=== PATIENT | female | born 1995 | race Caucasian/White ===

== ENCOUNTER 2017-09-30 18:03 | Emergency (ER) | payer OTHER ==
[~2017-09-30] VITALS: Ht 157.5 cm; Wt 75.0 kg
[~2017-09-30 18:03] MED LIST: FRRS300 PO; MTR600X PO; PRENTAB26 PO
[2017-09-30 18:07] VITALS: TEMP 36.7; Ht 157.5 cm; Wt 75.0 kg
[2017-09-30] MEDS ORDERED: SODIUM CHLORIDE 0.9% 1000ML 1,000 ML IV STA (20:18)
[2017-09-30] MEDS ORDERED: ONDANSETRON INJ 2 MG/ML 2 ML VIAL IV STA (20:18)
--- NOTE | 2017-09-30 20:29 | EMERGENCY ROOM VISIT NOTE ---
History Report prepared by Tomi: Edward Vega Under the Supervision of: Dr. Isaac Hutchins D.O. First contact with patient: 20:10 Chief Complaint: ED VAG BLEEDING Stated Complaint: BLOOD CLOTS, CRAMPING, BACK PAIN, MISSCARRIAGE? History of Present Illness The patient is a 22 year old female who presents to the Emergency Room with complaints of worsening blood clots and lower back pain that began 2 days ago. She has associated symptoms of nausea and "feeling like she has to throw up". She denies any change in urination, rashes, or leg swelling. She states that her last menstrual period was 2 months ago. She states her menstrual periods have been irregular for the past 2 months. She denies seeing a doctor for these symptoms. She denies having a current OBGYN. Patient adds that she gave on 08/08/2016. Physician that delivered the baby was Dr. Vernon of [facility] [place]. Pertinent past medical history includes anxiety, lower back pain, and depression. She states she takes medications for her anxiety and depression daily. She denies taking any back medication. She denies a history of surgeries. Patient denies using alcohol or tobacco. She denies taking Toradol or Tylenol. She does not have any medication allergies. Source of History: patient Onset: 2 days ago Position: back (lower) Timing: worsening Associated Symptoms: + nausea, No urinary symptoms, No rash Note: Patient denies leg swelling. Review of Systems See HPI for pertinent positives & negatives. A total of 10 systems reviewed and were otherwise negative. Past Medical & Surgical Medical Problems: (1) Anxiety (2) Depression (3) Family History No pertinent family medical history. Social History Smoking Status: Never Smoker Marital Status: Current/Historical Medications Scheduled [Anxiety Medication], 1 TAB PO DAILY [Depression Med], 1 TAB PO DAILY Allergies Coded Allergies: No Known Allergies (Unverified , 09/30/17) Physical Exam Vital Signs Date Time Temp Pulse Resp B/P (MAP) Pulse Ox O2 Delivery O2 Flow Rate FiO2 09/30/17 23:07 83 18 123/77 98 09/30/17 22:04 88 18 120/75 98 Room Air 09/30/17 18:07 36.7 94 17 138/93 100 Room Air Physical Exam GENERAL: Patient is awake, alert, and in no acute distress. Patient is resting comfortably and showing no signs of anxiety EYES: The conjunctivae are clear. The pupils are round and reactive. EARS, NOSE, MOUTH AND THROAT: The nose is without any evidence of any deformity. Mucous membranes are moist tongue is midline NECK: The neck is nontender and supple. RESPIRATORY: Normal respiratory effort is noted there is no evidence of wheezing rhonchi or rales CARDIOVASCULAR: Regular rate and rhythm noted there no murmurs rubs or gallops normal S1 normal S2 GASTROINTESTINAL: The abdomen is soft. Bowel sounds are present in all quadrants. Abdomen is nontender MUSCULOSKELETAL/EXTREMITIES: There is no evidence of gross deformity full range of motion is noted in the hips and shoulders SKIN: There is no obvious evidence of any rash. There are no petechiae, pallor or cyanosis noted. NEUROLOGIC: Patient is awake alert and oriented x3. Medical Decision & Procedures ER Provider Diagnostic Interpretation: Radiology results as stated below per my review and radiologist interpretation: TRANSVAG-FEMALE PELVIS CLINICAL HISTORY: 22 years-old Female presenting with bleeding, cramping, clots, irregular periods. TECHNIQUE: Real-time grayscale and color and spectral Doppler ultrasound imaging of the pelvis was performed first using a transabdominal probe and subsequently transvaginal for better characterization. COMPARISON: None. FINDINGS: Uterus: Normal. Anteverted. The uterus measures 5.6 x 2.7 x 3.9 cm. Endometrial stripe measures 2 mm in thickness. Endometrium normal-appearing. Cervix normal. Right adnexa: Right ovary normal with a dominant follicle. Right ovary measures 4.3 x 2.5 x 3.3 cm. Normal color Doppler flow and arterial and venous waveforms within the ovarian parenchyma. Left adnexa: Left ovary normal. Left ovary measures 2.6 x 1.6 x 1.9 cm. Normal color Doppler flow and arterial and venous waveforms within the ovarian parenchyma. Other: No free fluid. IMPRESSION: No significant abnormality identified within the pelvis. No ovarian torsion. Electronically signed by: Wu Finnegan M.D. 09/30/2017 9:50 PM Laboratory Results 09/30/17 20:30 Red Blood Count 4.31, Mean Corpuscular Volume 88.4, Mean Corpuscular Hemoglobin 30.9, Mean Corpuscular Hemoglobin Concent 34.9, Mean Platelet Volume 9.4, Neutrophils (%) (Auto) 68.3, Lymphocytes (%) (Auto) 23.7, Monocytes (%) (Auto) 5.6, Eosinophils (%) (Auto) 1.8, Basophils (%) (Auto) 0.2, Neutrophils # (Auto) 6.88, Lymphocytes # (Auto) 2.38, Monocytes # (Auto) 0.56, Eosinophils # (Auto) 0.18, Basophils # (Auto) 0.02 09/30/17 20:30 Test 09/30/17 20:30 White Blood Count 10.06 K/uL (4.8-10.8) Red Blood Count 4.31 M/uL (4.2-5.4) Hemoglobin 13.3 g/dL (12.0-16.0) Hematocrit 38.1 % (37-47) Mean Corpuscular Volume 88.4 fL (80-100) Mean Corpuscular Hemoglobin 30.9 pg (25-34) Mean Corpuscular Hemoglobin Concent 34.9 g/dl (32-36) Platelet Count 326 K/uL (130-400) Mean Platelet Volume 9.4 fL (7.4-10.4) Neutrophils (%) (Auto) 68.3 % Lymphocytes (%) (Auto) 23.7 % Monocytes (%) (Auto) 5.6 % Eosinophils (%) (Auto) 1.8 % Basophils (%) (Auto) 0.2 % Neutrophils # (Auto) 6.88 K/uL (1.4-6.5) Lymphocytes # (Auto) 2.38 K/uL (1.2-3.4) Monocytes # (Auto) 0.56 K/uL (0.11-0.59) Eosinophils # (Auto) 0.18 K/uL (0-0.5) Basophils # (Auto) 0.02 K/uL (0-0.2) RDW Standard Deviation 41.3 fL (36.4-46.3) RDW Coefficient of Variation 12.9 % (11.5-14.5) Immature Granulocyte % (Auto) 0.4 % Immature Granulocyte # (Auto) 0.04 K/uL (0.00-0.02) Prothrombin Time 10.2 SECONDS (9.0-12.0) Prothromb Time International Ratio 1.0 (0.9-1.1) Activated Partial Thromboplast Time 26.6 SECONDS (21.0-31.0) Partial Thromboplastin Ratio 1.0 Urine Color YELLOW Urine Appearance CLOUDY (CLEAR) Urine pH 5.0 (4.5-7.5) Urine Specific [place] 1.028 (1.000-1.030) Urine Protein NEG (NEG) Urine Glucose (UA) NEG (NEG) Urine Ketones NEG (NEG) Urine Occult Blood 3+ (NEG) Urine Nitrite NEG (NEG) Urine Bilirubin NEG (NEG) Urine Urobilinogen NEG (NEG) Urine Leukocyte Esterase SMALL (NEG) Urine WBC (Auto) 5-10 /hpf (0-5) Urine RBC (Auto) >30 /hpf (0-4) Urine Hyaline Casts (Auto) 1-5 /lpf (0-5) Urine Epithelial Cells (Auto) >30 /lpf (0-5) Urine Bacteria (Auto) NEG (NEG) Urine Yeast (Auto) (NONE PRSENT) Anion Gap 7.0 mmol/L (3-11) Est Creatinine Clear Calc Drug Dose 113.1 ml/min Estimated GFR () 133.3 Estimated GFR (Non- 115.0 BUN/Creatinine Ratio 21.6 (10-20) Calcium Level 9.6 mg/dl (8.5-10.1) Total Bilirubin 0.4 mg/dl (0.2-1) Aspartate Amino Transf (AST/SGOT) 15 U/L (15-37) Alanine Aminotransferase (ALT/SGPT) 24 U/L (12-78) Alkaline Phosphatase 100 U/L (45-117) Total Protein 8.6 gm/dl (6.4-8.2) Albumin 4.3 gm/dl (3.4-5.0) Globulin 4.3 gm/dl (2.5-4.0) Albumin/Globulin Ratio 1.0 (0.9-2) Human Chorionic Gonadotropin, Qual NEG (NEG) Laboratory results per my review. Medications Administered Medications (Trade) Dose Ordered Sig/Jimenez Route Start Time Stop Time Status Last Admin Dose Admin Ondansetron HCl (Zofran Inj) 4 mg NOW STAT IV 09/30/17 20:18 09/30/17 20:19 DC 09/30/17 20:49 4 MG Sodium Chloride 1,000 ml @ 999 mls/hr Q1H1M STAT IV 09/30/17 20:18 09/30/17 21:18 DC 09/30/17 20:30 999 MLS/HR ED Course 2215: The patient was evaluated in room B6. A complete history and physical examination were performed. 2018: NSS 1,000 ml @ 999 mls/hr IV, Zofran Inj 4mg IV 2306: Upon reevaluation, the patient is resting comfortably. I discussed the results and treatment plan with her. She verbalized agreement of the treatment plan. She was discharged home. Medical Decision Differential diagnosis: Etiologies such as ectopic , dysfunction uterine bleeding, bleeding dyscrasia, trauma, infection, as well as others were entertained. Nursing notes reviewed. The patient is a 22-year-old female who presented to emergency department for an evaluation of vaginal bleeding. The patient has had ongoing vaginal bleeding ever since she started her implantable control. The patient did not have significant anemia. She was not unstable with her vital signs and her ultrasound did not appear to be consistent with ongoing bleeding. I discussed the patient's laboratory and radiographic studies with her. She was encouraged to follow-up with her [employer] physician as scheduled and return to the emergency department immediately if symptoms change worsen or the need arises. Medication Reconcilliation Current Medication List: was personally reviewed by me Blood Pressure Screening Patient's blood pressure: Normal blood pressure Blood pressure disposition: Did not require urgent referral Impression Primary Impression: Vaginal bleeding Scribe Attestation The scribe's documentation has been prepared under my direction and personally reviewed by me in its entirety. I confirm that the note above accurately reflects all work, treatment, procedures, and medical decision making performed by me. Departure Information Dispostion Home / Self-Care Referrals No Doctor, Assigned (PCP) Forms HOME CARE DOCUMENTATION FORM, IMPORTANT VISIT INFORMATION, WORK / SCHOOL INSTRUCTIONS Patient Instructions ED Bleed Irregular Vaginal, My [facility] [place] Additional Instructions Continue using Motrin and Tylenol as directed for pain. Call your [employer] to schedule a follow-up appointment. Rest and avoid any strenuous activity. Drink plenty clear liquids.
[2017-09-30 20:51] LABS: BASO % 0.2 %; BASO ABS # 0.02 K/uL (0-0.2); EOS % 1.8 %; EOS ABS # 0.18 K/uL (0-0.5); HEMATOCRIT 38.1 % (37-47); HEMOGLOBIN 13.3 g/dL (12.0-16.0); IG# 0.04 K/uL (0.00-0.02); LYMPH % 23.7 %; LYMPH ABS # 2.38 K/uL (1.2-3.4); MEAN CELL VOLUME 88.4 fL (80-100); MEAN CORPUSCULAR HEMOGLOBIN 30.9 pg (25-34); MEAN CORPUSCULAR HGB CONC 34.9 g/dl (32-36); MEAN PLATELET VOLUME 9.4 fL (7.4-10.4); MONO % 5.6 %; MONO ABS # 0.56 K/uL (0.11-0.59); NEUT % 68.3 %; NEUT ABS # 6.88 K/uL (1.4-6.5); PLATELET COUNT 326 K/uL (130-400); RED CELL DISTRIBUTION WIDTH CV 12.9 % (11.5-14.5); RED CELL DISTRIBUTION WIDTH SD 41.3 fL (36.4-46.3); WHITE BLOOD COUNT 10.06 K/uL (4.8-10.8)
[2017-09-30] MEDS ORDERED: ANXIETY MEDICATION PO (21:02)
[2017-09-30] MEDS ORDERED: DEPRESSION MED PO (21:02)
[2017-09-30 21:08] LABS: PTT PATIENT 26.6 SECONDS (21.0-31.0)
[2017-09-30 21:16] LABS: ALBUMIN 4.3 gm/dl (3.4-5.0); CALCIUM 9.6 mg/dl (8.5-10.1); CREATININE 0.74 mg/dl (0.60-1.20)
[2017-09-30 21:18] LABS: TOTAL PROTEIN 8.6 gm/dl (6.4-8.2)
--- NOTE | 2017-09-30 21:52 | DIAGNOSTIC IMAGING REPORT ---
TRANSVAG-FEMALE PELVIS CLINICAL HISTORY: 22 years-old Female presenting with bleeding, cramping, clots, irregular periods. TECHNIQUE: Real-time grayscale and color and spectral Doppler ultrasound imaging of the pelvis was performed first using a transabdominal probe and subsequently transvaginal for better characterization. COMPARISON: None. FINDINGS: Uterus: Normal. Anteverted. The uterus measures 5.6 x 2.7 x 3.9 cm. Endometrial stripe measures 2 mm in thickness. Endometrium normal-appearing. Cervix normal. Right adnexa: Right ovary normal with a dominant follicle. Right ovary measures 4.3 x 2.5 x 3.3 cm. Normal color Doppler flow and arterial and venous waveforms within the ovarian parenchyma. Left adnexa: Left ovary normal. Left ovary measures 2.6 x 1.6 x 1.9 cm. Normal color Doppler flow and arterial and venous waveforms within the ovarian parenchyma. Other: No free fluid. IMPRESSION: No significant abnormality identified within the pelvis. No ovarian torsion. Electronically signed by: Wu Finnegan M.D. 09/30/2017 9:50 PM Dictated Date/Time: 09/30/2017 9:48 PM
[2017-09-30 23:07] VITALS: BP 123/77; PULSE 83; O2SAT 98
== END 2017-09-30 23:03 | disposition home or self-care (01) ==
LOC: C.EDB 18:03
DX: N93.9 Abnormal uterine and vaginal bleeding, unspecified (principal); R11.0 Nausea